=== PATIENT | female | born 1960 | race African-American/Black ===

== ENCOUNTER 2017-09-27 09:20 | Emergency (ER) | payer OTHER ==
[2017-09-27 10:08] LABS: ADD MAN DIFF? NO
[2017-09-27 10:17] LABS: BASO % 1 % (0-3); EOS # 0.1 x10^3/uL (0.0-0.7); EOS % 3 % (0-3); HEMATOCRIT 42.2 % (36.0-47.0); HEMOGLOBIN 14.1 g/dL (12.0-15.5); LYMPH % 22 % (24-48); MEAN CORPUSCULAR HEMOGLOBIN 30 pg (25-35); MEAN CORPUSCULAR HGB CONC 34 g/dL (31-37); MEAN CORPUSCULAR VOLUME 89 fL (79-100); MONO # 0.3 x10^3/uL (0.0-1.1); MONO % 6 % (0-9); NEUT # 3.1 x10^3uL (1.8-7.7); NEUT % 69 % (31-73); PLATELET COUNT 214 x10^3/uL (140-400); RED BLOOD COUNT 4.76 x10^6/uL (3.50-5.40); RED CELL DISTRIBUTION WIDTH 14.4 % (11.5-14.5); WHITE BLOOD COUNT 4.5 x10^3/uL (4.0-11.0)
[2017-09-27] MEDS: IPRATRPIUM/ALBUTEROL 0.5/2.5MG 3 ML NEBU. NEB (10:21)
[2017-09-27 10:29] LABS: ANION GAP 7 (6-14); BLOOD UREA NITROGEN 16 mg/dL (7-20); BUN/CREATININE RATIO 18 (6-20); CALCIUM 9.3 mg/dL (8.5-10.1); CARBON DIOXIDE 30 mmol/L (21-32); CHLORIDE 106 mmol/L (98-107); CREATININE 0.9 mg/dL (0.6-1.0); GFR 77.8; GLUCOSE 114 mg/dL (70-99); POTASSIUM 4.2 mmol/L (3.5-5.1); SODIUM 143 mmol/L (136-145)
[2017-09-27 10:34] LABS: ALBUMIN 3.4 g/dL (3.4-5.0); ALBUMIN/GLOBULIN RATIO 0.8 (1.0-1.7); ALK PHOS 103 U/L (46-116); ALT (SGPT) 66 U/L (14-59); AST (SGOT) 43 U/L (15-37); TOTAL BILIRUBIN 0.4 mg/dL (0.2-1.0); TOTAL PROTEIN 7.5 g/dL (6.4-8.2)
[2017-09-27 10:36] LABS: D-DIMER 0.38 ug/mlFEU (0.00-0.50)
[2017-09-27] MEDS: ALBUTEROL SULFATE 2.5 MG/3 ML NEBU. NEB (10:59)
[2017-09-27] MEDS: predniSONE 10 MG TABLET PO (11:21)
== END 2017-09-27 11:52 | disposition home or self-care (01) ==
LOC: ER 09:20
DX: J40 Bronchitis, not specified as acute or chronic (principal); G89.29 Other chronic pain; I10 Essential (primary) hypertension; J45.909 Unspecified asthma, uncomplicated
CPT/HCPCS: 36415; 71046; 80053; 85025; 85379; 93005; 94640; 99285-25; J7512; J7613; J7620

== ENCOUNTER → 2021-10-23 | Outpatient (CLI) | payer OTHER ==
[2017-09-27 11:19] VITALS: BP 168/79
[~2021-10-23] MED LIST: ACET500T33 PO; ALBU2.5V8 INH; ALPR0.5T PO; ASPI-482 PO; AZIT250T PO; FLUO20CA22 PO; HYDR-2761 PO; LOSA-73 PO; MELO7.5T29 PO; NAPR220C4 PO; NITR0.4T24 SL; OMEP20CA16 PO; PANT40TA77 PO; PRED50TA PO; VENTOLIN HFA18 GM INH
[2021-10-23 09:16] LABS: BASO % 1 % (0-3); EOS # 0.2 x10^3/uL (0.0-0.7); EOS % 3 % (0-3); HEMATOCRIT 42.2 % (36.0-47.0); HEMOGLOBIN 14.3 g/dL (12.0-15.5); LYMPH % 18 % (24-48); MEAN CORPUSCULAR HEMOGLOBIN 31 pg (25-35); MEAN CORPUSCULAR HGB CONC 34 g/dL (31-37); MEAN CORPUSCULAR VOLUME 91 fL (79-100); MONO # 0.3 x10^3/uL (0.0-1.1); MONO % 6 % (0-9); NEUT # 3.9 x10^3/uL (1.8-7.7); NEUT % 72 % (31-73); PLATELET COUNT 271 x10^3/uL (140-400); RED BLOOD COUNT 4.66 x10^6/uL (3.50-5.40); RED CELL DISTRIBUTION WIDTH 13.8 % (11.5-14.5); WHITE BLOOD COUNT 5.3 x10^3/uL (4.0-11.0)
[2021-10-23 09:33] LABS: ALBUMIN 3.8 g/dL (3.4-5.0); CALCIUM 9.6 mg/dL (8.5-10.1); POTASSIUM 4.1 mmol/L (3.5-5.1)
[2021-10-23 09:38] LABS: PROTHROMBIN TIME PATIENT 13.6 SEC (11.7-14.0)
[2021-10-24 01:11] LABS: HEMOGLOBIN A1C 5.6 % (4.8-5.6)
--- NOTE | 2021-10-24 07:45 | EKG ---
[facility] [address] [place] [address] Test Date: 2021-10-23 Test Time: 11:53:41 Pat Name: TAYO ALMENDAREZ Department: Room: Gender: F [employer] Supervisor: GREY : 1960 Requested By: HENRIQUE CORONADO Order Number: [id number] Reading MD: Chinedu Estevez Measurements Intervals [employer] Rate: 79 P: 33 NM: 142 QRS: -9 QRSD: 88 T: 58 QT: 370 QTc: 425 Interpretive Statements SINUS RHYTHM LEFT ATRIAL ABNORMALITY LEFTWARD AXIS Q WAVE IN LEAD III Electronically Signed On 10-24-2021 9:31:36 CDT by Chinedu Estevez
--- NOTE | 2021-10-24 07:47 | RAD ---
XR CHEST 2V INDICATION: joint prehab patient-hx hypertension-preop eval / Spl. Instructions: / History: . COMPARISON STUDY: 09/27/2017. FINDINGS: Lungs: Normal lung volume. No pulmonary mass or consolidation. Calcified pulmonary granuloma. Pleura: No pleural effusion or pneumothorax. Heart and Mediastinum: The cardiomediastinal silhouette is normal. The great vessels of the thorax ar e normal. Bones and Soft Tissues: Degenerative changes of the spine. IMPRESSION: No acute cardiopulmonary process. Electronically signed by: Lito Phillips MD (10/23/2021 2:03 PM) [id number]
== END ==
LOC: SURGPAT 13:19
PROVIDERS: ATTEND Orthopaedic Surgery
DX: Z01.818 Encounter for other preprocedural examination (principal); J84.10 Pulmonary fibrosis, unspecified; R94.31 Abnormal electrocardiogram [ECG] [EKG]; M47.814 Spondylosis without myelopathy or radiculopathy, thoracic region; M16.11 Unilateral primary osteoarthritis, right hip
CPT/HCPCS: 36415; 71046; 80048; 82040; 82306; 83036; 85025; 85610; 85651; 85730; 87641; 93005